=== PATIENT | female | born 1945 | race Caucasian/White ===

== ENCOUNTER 2016-09-25 14:30 | Emergency (ER) | payer MEDICARE ==
[~2016-09-25 14:30] MED LIST: BENADRYL25 MG PO; CALCIUM 600 +1 EACH PO; CELEXA20 MG PO; CERTAGEN1 EACH PO; DALIRESP500 MCG PO; GAVISCON LIQUI355 ML PO; IMITREX6 MG/0.51 IJ; KENALOG IN ORABA5 GM TOP; LOPERAMIDE2 M1 PO; LYRICA 50MG CAP50 MG PO; MACROBID100 MG PO; MIRALAX17 GM PO; MUCINEX PO; PEPCID AC20 MG PO; PHENAZOPYRIDIN200 MG PO; SINGULAIR10 MG PO; SPIRIVA18 MCG INH; SYMBICORT 1601 PUFFS INH; VENTOLIN (2.5 MG/3 M INH; VICODIN 10/3251 EACH PO; ZANAFLEX4 MG PO; ZETIA10 MG PO
== END 2016-09-25 17:06 | disposition home or self-care (01) ==
LOC: FER 14:30
DX: H54.2 Low vision, both eyes (principal); H53.2 Diplopia; Z88.1 Allergy status to other antibiotic agents; Z88.2 Allergy status to sulfonamides; Z88.5 Allergy status to narcotic agent; Z88.8 Allergy status to other drugs, medicaments and biological substances
CPT/HCPCS: 70450